=== PATIENT | female | born 1965 | race Caucasian/White ===

== ENCOUNTER 2018-09-22 21:34 | Emergency (ER) | payer MEDICAID ==
[~2018-09-22] VITALS: Ht 167.6 cm; Wt 74.8 kg
[2018-09-22 22:17] VITALS: Ht 167.6 cm; Wt 74.8 kg
[2018-09-22 23:14] LABS: BASOPHIL % 0.8 % (0-2); PLATELET COUNT 255 x10^3mcL (130-400); RED CELL DISTRIBUTION WIDTH 13.3 % (11.5-14.5)
[2018-09-22 23:20] LABS: CALCIUM 9.4 mg/dL (8.5-10.1); CARBON DIOXIDE 25.2 mmol/L (21-32); CHLORIDE SERUM 104 mmol/L (98-107); CREATININE SERUM 0.7 mg/dL (0.6-1.0); GFR1 > 60 mL/min; GLUCOSE SERUM 128 mg/dL (74-106); POTASSIUM SERUM 4.2 mmol/L (3.5-5.1); SODIUM SERUM 141 mmol/L (136-145)
[2018-09-22 23:25] LABS: ALKALINE PHOSPHATASE 94 U/L (46-116); ALT/SGPT 35 U/L (14-59); AST/SGOT 19 U/L (15-37); HDL CHOLESTEROL 50 mg/dL (40-60); URIC ACID 3.8 mg/dL (2.6-6.0)
[2018-09-22 23:27] LABS: CHOLESTEROL 211 mg/dL (<200)
[2018-09-23 01:18] VITALS: BP 127/65
== END 2018-09-23 01:18 | disposition home or self-care (01) ==
LOC: ED 21:34
PROVIDERS: Emergency Medicine
DX: R42 Dizziness and giddiness (principal); R22.42 Localized swelling, mass and lump, left lower limb
CPT/HCPCS: 36415; J8597